=== PATIENT | male | born 1960 | race Caucasian/White ===

== ENCOUNTER → 2021-06-18 13:03 | Outpatient (CLI) | payer OTHER, SELFPAY ==
[2021-06-18 19:33] LABS: Appearance Urine UA CLEAR; Bilirubin Urine UA NEGATIVE (NEGATIVE); Color Urine UA YELLOW; Glucose Urine UA NEGATIVE (Negative); Ketones Urine UA NEGATIVE (NEGATIVE); Leukocyte Esterase Urine UA NEGATIVE (NEGATIVE); Nitrite Urine UA NEGATIVE (Negative); Occult Blood Urine UA NEGATIVE (Negative); Protein Urine UA NEGATIVE (Negative); Urobilinogen Urine UA 0.2 E.U./dL (0.2); pH Urine UA 6.5 (4.5-8.0)
[2021-06-18 19:40] LABS: Estimated Glomerular Filt Rate > 60.0 mL/min (>60)
[2021-06-18 19:42] LABS: Bacteria Urine None Seen; RBC Urine 0-1/HPF (0-5/HPF); WBC Urine 0-1/HPF (0-5/HPF)
== END ==
DX: N39.0 Urinary tract infection, site not specified (principal)
CPT/HCPCS: 81001; 82565; 87086